=== PATIENT | male | born 1945 | race Caucasian/White ===

== ENCOUNTER → 2016-04-01 | Outpatient (CLI) | payer MEDICARE, MEDICAID ==
[~2016-04-01] MED LIST: AC325T PO; ASPI325T32 PO; ATOR20TA66 PO; DCS100C PO; DULO20CA PO; ENLP5T PO; GUAI100L2 PO; HYDR-3583 PO; IBP600T1 PO; IBUP1TAB15 PO; INSA70301U SC; INSU100I14 SQ; INSU100I16 SQ; INSU100V3 SQ; INSULIN 70/30 SQ; LORA1TAB PO; MAGN400O7 PO; MGX400T PO; ONDAN4ODT PO; OXC5T PO; PNT40TEC PO; SENN1TAB76 PO; TMSL.4C PO; [UNRECOGNIZED DRUG - CODE] PO
--- OUTSIDE RECORDS SUMMARY | 2016-04-01 23:42 | XMS REPORT | Continuity of Care Document ---
Author Author [facility] Organization [facility] Address Unknown Phone Unavailable Care Team Providers Care Shape Carver Name Role Phone VENKATESH HARMAN MD PCP Insurance Providers Payer Name Policy Number Subscriber Name Relationship [employer] [id number] Jesus Mcnulty 17 Self / Same As Patient [facility] [employer] [id number] Jesus Mcnulty 17 Self / Same As Patient Advance Directives Directive Response Recorded Date/Time Advance Directives No 10/21/13 10:25am Health Care Power of Shake Backboard Notcher N unknown 10/21/13 10:25am Organ Donor No 10/21/13 10:25am Resuscitation Status Full Code 10/21/13 10:25am Problems No known problems or medical conditions. Medications Medication Dose Route Sig Days/Qty Instructions Order Date Discontinued Date Status Acetaminophen 650 Mg PO EVERY 6 HOURS PRN 09/13/12 10/21/13 Discontinued Aspirin 325 Mg PO DAILY 09/13/12 Active Atorvastatin 40 Mg PO BEDTIME 09/13/12 10/21/13 Discontinued Docusate Sodium 100 Mg PO DAILY 09/13/12 Active Enalapril Maleate 5 Mg PO BEDTIME 09/13/12 Active Guaifenesin 200 Mg PO FOUR TIMES DAILY 09/13/12 10/21/13 Discontinued Ibuprofen 600 Mg PO TWICE A DAY WITH MEALS 09/13/12 10/21/13 Discontinued Insulin Aspart 10 Unit SQ DAILY @0700 09/13/12 10/21/13 Discontinued Insulin Aspart 10 Unit SQ DAILY @1200 09/13/12 10/21/13 Discontinued Insulin Aspart 12 Unit SQ DAILY @1700 09/13/12 10/21/13 Discontinued Insulin Detemir 36 Unit SQ DAILY @0900 09/13/12 10/21/13 Discontinued Insulin Detemir 34 Unit SQ BEDTIME 09/13/12 10/21/13 Discontinued Lorazepam 1 Mg PO EVERY 4HRS PRN 09/13/12 10/21/13 Discontinued Mag Hydrox/Al Hydrox/Simeth 30 Ml PO EVERY 2 HOURS PRN 09/13/12 Discontinued Magnesium Hydroxide 30 Ml PO DAILY PRN 09/13/12 10/21/13 Discontinued Ondansetron HCl 4 Mg PO EVERY 4HRS PRN 09/13/12 10/21/13 Discontinued Pantoprazole Sodium 1 Tab PO DAILY @0700 09/13/12 10/21/13 Discontinued Senna 1 Ea PO TWICE A DAY 09/13/12 10/21/13 Discontinued Acetaminophen/Hydrocodone Bitart 1 Ea PO EVERY 6 HOURS PRN 09/13/12 09/13/12 Discontinued Insulin Regular Human Rec 0 SQ DIRECTED BLOOD GLUCOSE: 09/13/12 Discontinued Oxycodone HCl (Oxycodone IR) 10 Mg PO EVERY 4HRS PRN 09/13/12 Discontinued [Insulin 70/30] 25 Units SQ TWICE A DAY 10/21/13 Active Social History Social History Problem Response Recorded Date/Time Smoking Status Former Smoker 10/21/2013 10:31am Do you dip or chew tobacco? No 10/21/2013 10:31am Query Response Start Date Stop Date Smoking Status Former Smoker 08/09/2012 Hospital Discharge Instructions No hospital discharge instructions. Plan of Care No plan of care. Functional Status No functional status results. Allergies, Adverse Reactions, Alerts Allergen Type Severity Reaction Status Last Updated No Known Drug Allergies Active 08/09/12 Immunizations Name Given Type Date of Pneumonia Vaccine 10/21/09 Historical Vital Signs Acute Vital Signs Vital Response Date/Time Temperature (Fahrenheit) 98.1 degrees F (97.6 - 99.5) Temperature (Calculated Celsius) 36.98677 degrees C (36.4 - 37.5) Temperature Source Tympanic Pulse Rate (adult) 89 bpm (60 - 90) Respiratory Rate 18 bpm (12 - 24) O2 Sat by Pulse Oximetry 96 % (88 - 100) Blood Pressure 116/87 mm Hg Pain Pain Intensity 0 Height (Feet) 5 feet Height (Inches) 10.00 inches Height (Calculated Centimeters) 177.397263 cm Weight (Pounds) 180 pounds Weight (Calculated Grams) 16106.627 gm Weight (Calculated Kilograms) 81.351633 kilograms Height 5 ft 10 in Weight 180 lb Body Mass Index 25.8 kg/m^2 Results Test Source Date Result Interp. Ref. Range Comments Activated Partial Thromboplast Time August 09, 2012 12:51am 26 SEC N 24- 35 Alanine Aminotransferase (ALT/SGPT) September 13, 2012 10:00am 148 U/L H 30- 65 Albumin September 13, 2012 10:00am 2.9 G/DL L 3.4-5.0 Alkaline Phosphatase September 13, 2012 10:00am 116 U/L N 50-136 Amylase Level August 09, 2012 12:51am 81 U/L N 25-115 Aspartate Amino Transf (AST/SGOT) September 13, 2012 10:00am 82 U/L H 15-37 BUN/Creatinine Ratio September 13, 2012 10:00am 20 - Band Neutrophils August 09, 2012 12:51am 1 % - Basophils # (Auto) August 09, 2012 12:51am 0.1 10^3/uL N 0.0-0.1 Basophils % (Manual) August 09, 2012 12:51am 0 % - Basophils (%) (Auto) August 09, 2012 12:51am 1 % N 0-10 Blood Urea Nitrogen September 13, 2012 10:00am 26 MG/DL H 7-18 Calcium Level September 13, 2012 10:00am 8.7 MG/DL N 8.5-10.1 Carbon Dioxide Level September 13, 2012 10:00am 28 MMOL/L N 21-32 Chloride Level September 13, 2012 10:00am 103 MMOL/L N 101-110 Creatine Kinase MB August 09, 2012 12:51am 0.0 NG/ML N 0.0-3.6 Creatinine September 13, 2012 10:00am 1.3 MG/DL N 0.6-1.3 Eosinophils # (Auto) August 09, 2012 12:51am 0.5 10^3/uL H 0.0-0.3 Eosinophils % (Manual) August 09, 2012 12:51am 1 % - Eosinophils (%) (Auto) August 09, 2012 12:51am 3 % N 0-10 Erythrocyte Sedimentation Rate September 05, 2012 4:28am 21 MM/HR N 0-30 Glucose Level September 13, 2012 10:00am 196 MG/DL H 74-106 Hematocrit September 13, 2012 10:00am 43 % N 40-54 Hemoglobin September 13, 2012 10:00am 14.4 G/DL N 13.3-17.7 Hepatitis A IgM Antibody August 21, 2012 6:42pm NR - Hepatitis B Core IgM Antibody August 21, 2012 6:42pm NR - Hepatitis B Surface Antigen August 21, 2012 6:42pm NR - Hepatitis C Antibody August 21, 2012 6:42pm REACTIVE H - THIS IS A REPORTABLE DISEASE. POSITIVE RESULTS WILL BEREPORTED TO THE [facility] DEPARTMENT. Hepatitis C RNA (PCR) IUs/ml August 24, 2012 6:24am [id number] H IU/ML - Hepatitis C RNA (PCR) log IUs/ml August 24, 2012 6:24am 5.55 H LOGIU/ML - HCV PCR LOG Units: LogIU/mL Please note: the guidelines for the use of new anti- HCV therapies (boceprevir and telaprevir) recommend using a test method that detects plasma viral nucleic acid levels as low as 10 IU/ml. This assay has a lower Limit of Detection of 7.1 IU/ml for genotype 1 and conforms to the recommendation. Quantitation of plasma HCV nucleic acid levels below 43 IU/ml (the Lower Limit of Quantitation for this test) may not be linear, and in this circumstance are reported as "<43 IU/mL HCV RNA Detected". This test was performed using the ARNOLD(R) AmpliPrep / ARNOLD(R) TaqMan(R) HCV Test Kit ([employer] http://education.[employer]/faq/HCV-RNA-PCR THIS TEST WAS PERFORMED AT: [facility] [address] [id number] Lipase August 09, 2012 12:51am 278 U/L N 73-393 Lymphocytes # (Auto) August 09, 2012 12:51am 6.5 X 10^3 H 1.0-4.0 Lymphocytes % (Manual) August 09, 2012 12:51am 28 % - Lymphocytes (%) (Auto) August 09, 2012 12:51am 41 % N 12-44 Magnesium Level August 24, 2012 6:24am 1.8 MG/DL N 1.8-2.4 Mean Corpuscular Hemoglobin September 13, 2012 10:00am 32 PG N 25-34 Mean Corpuscular Hemoglobin Concent September 13, 2012 10:00am 34 G/DL N 32- 36 Mean Corpuscular Volume September 13, 2012 10:00am 95 FL N 80-99 Mean Platelet Volume September 13, 2012 10:00am 10.3 FL N 7.4-10.4 Monocytes # (Auto) August 09, 2012 12:51am 1.7 X 10^3 H 0.0-1.0 Monocytes % (Manual) August 09, 2012 12:51am 16 % - Monocytes (%) (Auto) August 09, 2012 12:51am 11 % N 0-12 Myoglobin August 09, 2012 12:51am 62 UG/L N 10-92 Neutrophils # (Auto) August 09, 2012 12:51am 7.1 X 10^3 N 1.8-7.8 Neutrophils % (Manual) August 09, 2012 12:51am 50 % - Neutrophils (%) (Auto) August 09, 2012 12:51am 45 % N 42-75 Platelet Count September 13, 2012 10:00am 213 10^3/uL N 130-400 Potassium Level September 13, 2012 10:00am 3.9 MMOL/L N 3.6-5.0 Prostate Specific Antigen September 05, 2012 4:28am 0.44 NG/ML - Interpretative data is available online at:[email or web address] Enter Test Number:[id number] Prothrombin Time August 09, 2012 12:51am 13.1 SEC N 12.2-14.7 Reactive Lymphocytes August 09, 2012 12:51am 4 % - Red Blood Count September 13, 2012 10:00am 4.51 10^6/uL N 4.35-5.85 Red Cell Distribution Width September 13, 2012 10:00am 13.5 % N 10.0-14.5 Sodium Level September 13, 2012 10:00am 137 MMOL/L N 135-145 TSH Alfalfa Testing August 09, 2012 12:51am 1.71 UIU/ML N 0.34-5.60 Total Bilirubin September 13, 2012 10:00am 0.4 MG/DL N 0.0-1.0 Total Creatine Kinase August 09, 2012 12:51am 57 U/L N 1-205 Total Protein September 13, 2012 10:00am 6.5 G/DL N 6.4-8.2 Troponin I August 09, 2012 12:51am < 0.10 NG/ML 0.00-0.10 Any elevation of troponin above the limit of the reference range is indicative of myocardial injury from any cause. Significant interval decrease or increase between elevated troponin values at 0 and 6 hours (> 20%) would, in the context of related clinical and EKG findings favor ischemic myocardial injury. Ur Tricyclic Antidepressants Screen August 09, 2012 1:37am NEGATIVE - Urine Amphetamines Screen August 09, 2012 1:37am NEGATIVE - Urine Bacteria August 09, 2012 1:37am NEGATIVE /HPF - Has specimen been collected/obtained? YSpecimen Description CLEAN CATCH Urine Barbiturates Screen August 09, 2012 1:37am NEGATIVE - Urine Benzodiazepines Screen August 09, 2012 1:37am NEGATIVE - Urine Bilirubin August 09, 2012 1:37am NEGATIVE - Has specimen been collected/obtained? YSpecimen Description CLEAN CATCH Urine Casts August 09, 2012 1:37am NONE /LPF - Has specimen been collected/obtained? YSpecimen Description CLEAN CATCH Urine Clarity August 09, 2012 1:37am CLEAR - Has specimen been collected/obtained? YSpecimen Description CLEAN CATCH Urine Cocaine Screen August 09, 2012 1:37am NEGATIVE - Urine Color August 09, 2012 1:37am YELLOW - Has specimen been collected /obtained? YSpecimen Description CLEAN CATCH Urine Crystals August 09, 2012 1:37am NONE /LPF - Has specimen been collected/obtained? YSpecimen Description CLEAN CATCH Urine Culture Indicated August 09, 2012 1:37am NO - Has specimen been collected/obtained? YSpecimen Description CLEAN CATCH Urine Glucose (UA) August 09, 2012 1:37am NEGATIVE - Has specimen been collected/obtained? YSpecimen Description CLEAN CATCH Urine Ketones August 09, 2012 1:37am NEGATIVE - Has specimen been collected/obtained? YSpecimen Description CLEAN CATCH Urine Leukocyte Esterase August 09, 2012 1:37am NEGATIVE - Has specimen been collected/obtained? YSpecimen Description CLEAN CATCH Urine Methamphetamines Screen August 09, 2012 1:37am NEGATIVE - Urine Mucus August 09, 2012 1:37am NEGATIVE /LPF - Has specimen been collected/obtained? YSpecimen Description CLEAN CATCH Urine Nitrite August 09, 2012 1:37am NEGATIVE - Has specimen been collected/obtained? YSpecimen Description CLEAN CATCH Urine Opiates Screen August 09, 2012 1:37am NEGATIVE - Urine Phencyclidine Screen August 09, 2012 1:37am NEGATIVE - Urine Propoxyphene Screen August 09, 2012 1:37am NEGATIVE - Urine Protein August 09, 2012 1:37am NEGATIVE - Has specimen been collected/obtained? YSpecimen Description CLEAN CATCH Urine RBC August 09, 2012 1:37am NONE /HPF - ONLY 7 ML WAS CENTRIFUGED FOR MICROSCOPIC EXAM DUE TO LOWSAMPLE VOLUME. Urine Renal Epithelial Cells August 09, 2012 1:37am Not Performed - Urine Specific [place] August 09, 2012 1:37am 1.020 - Has specimen been collected/obtained? YSpecimen Description CLEAN CATCH Urine Squamous Epithelial Cells August 09, 2012 1:37am RARE /HPF - Has specimen been collected/obtained? YSpecimen Description CLEAN CATCH Urine Urobilinogen August 09, 2012 1:37am NORMAL MG/DL - Has specimen been collected/obtained? YSpecimen Description CLEAN CATCH Urine WBC August 09, 2012 1:37am NONE /HPF - Has specimen been collected/obtained? YSpecimen Description CLEAN CATCH Urine pH August 09, 2012 1:37am 5 - Has specimen been collected/ obtained? YSpecimen Description CLEAN CATCH White Blood Count September 13, 2012 10:00am 9.2 10^3/uL N 4.3-11.0 Pro-B-Type Natriuretic Peptide August 09, 2012 12:51am 99.3 PG/ML N -125 Serum Alcohol August 09, 2012 12:51am < 5 MG/DL -5 Glucometer September 13, 2012 2:44pm 203 MG/DL H 70-110 Estimat Glomerular Filtration Rate August 09, 2012 12:51am 40 - GFR INTERPRETIVE DATA UNITS FOR ESTIMATED GFR (eGFR): mL/min/1.73 M2 REFERENCE RANGE FOR ESTIMATED GFR (eGFR) eGFR NORMAL eGFR >60 MODERATELY DECREASED eGFR 30-59 SEVERLY DECREASED eGFR 15-29 KIDNEY FAILURE <15 (OR DIALYSIS) Urine Oxycodone Screen August 09, 2012 1:37am NEGATIVE - Blood Morphology Comment August 09, 2012 12:51am NORMAL - Urine Methadone Screen August 09, 2012 1:37am NEGATIVE - Urine Cannabinoids Screen August 09, 2012 1:37am NEGATIVE - Urine Buprenorphine August 09, 2012 1:37am NEGATIVE - Hepatitis C Antibody Index August 21, 2012 6:42pm >11.00 INDEX H - HCV INDEX INTERPRETIVE DATAINDEX PERCENT CONFIRMED POSITIVE 1.0 - 3.99 25% 4.0 - 7.99 77% 8.0 - 10.99 73% >11.0 99.9% Positive results with an index of >11.0 are accepted by CDC as having anti-HCV status with no need of confirmation. Urine RBC (Auto) August 09, 2012 1:37am NEGATIVE - Has specimen been collected/obtained? YSpecimen Description CLEAN CATCH INR Comment August 09, 2012 12:51am 1.0 N 0.8-1.4 INTERPRETIVE DATASUGGESTED THERAPEUTIC RANGE FOR INR'S: VENOUS THROMBOSIS, PULMONARY EMBOLISM, OR PREVENTION OF SYSTEMIC EMBOLISM (EG. IN ATRIAL FIBRILLATION): 2.0 - 3.0 MECHANICAL PROSTHETIC HEART VALVES: 2.5 - 3.5* *NOTE: INR'S UP TO 4.5 MAY BE NECESSARY IN SELECTED GROUPS OF HIGH RISK PATIENTS. [employer] CONSENSUS CONFERENCE ON ANTITHROMBOTIC THERAPY (2000). Procedures Procedure Status Date Provider(s) Esophagogastroduodenoscopy (EGD) completed 10/21/13 VALERIE EDGE MD Encounters Encounter Location Date/Time Registered Clinic [facility] 10/18/13 2:31pm
[2016-04-01 23:45] LABS: BILIRUBIN,URINE 1+ (NEGATIVE); KETONES,URINE 1+ (NEGATIVE); LEUKOCYTE ESTERASE ,URINE 1+ (NEGATIVE); NITRITE,URINE POSITIVE (NEGATIVE); PH,URINE 5 (5-9); PROTEIN,URINE 2+ (NEGATIVE); UROBILINOGEN,URINE 4 MG/DL (NORMAL)
[2016-04-01 23:55] LABS: WBC,URINE RARE /HPF
== END ==
PROVIDERS: ATTEND Nurse Practitioner
DX: R82.99 Other abnormal findings in urine (principal); R34 Anuria and oliguria
CPT/HCPCS: 81000; 87077; 87088; 87186